=== PATIENT | male | born 1950 ===

== ENCOUNTER 2020-12-19 06:00 | Outpatient (RCR) | payer MEDICARE, SELFPAY | END 2020-12-23 23:59 | disposition home or self-care (01) | LOC: GPT 06:00 | PROVIDERS: PCP Nurse Practitioner Family; Referring Provider Registered Nurse; Visit Provider Registered Nurse | DX: M54.16 Radiculopathy, lumbar region (principal) | CPT/HCPCS: 97110; 97161; 97530 ==

== ENCOUNTER 2020-12-24 06:00 | Outpatient (RCR) | payer MEDICARE, SELFPAY | END 2021-01-22 23:59 | disposition home or self-care (01) | LOC: GPT 06:00 | PROVIDERS: PCP Nurse Practitioner Family; Referring Provider Registered Nurse; Visit Provider Registered Nurse | DX: M54.16 Radiculopathy, lumbar region (principal); R20.0 Anesthesia of skin | CPT/HCPCS: 97032; 97110; 97112; 97140 ==

== ENCOUNTER 2021-01-23 06:00 | Outpatient (RCR) | payer MEDICARE, SELFPAY | END 2021-02-13 23:59 | disposition home or self-care (01) | LOC: GPT 06:00 | PROVIDERS: PCP Nurse Practitioner Family; Referring Provider Registered Nurse; Visit Provider Registered Nurse | DX: M54.16 Radiculopathy, lumbar region (principal); R20.0 Anesthesia of skin | CPT/HCPCS: 97110 ==

== ENCOUNTER 2023-07-16 06:00 | Outpatient (RCR) | payer MEDICARE, SELFPAY | END 2023-07-24 23:59 | disposition home or self-care (01) | LOC: GPT 06:00 | PROVIDERS: Visit Provider Nurse Practitioner | DX: R26.9 Unspecified abnormalities of gait and mobility (principal) | CPT/HCPCS: 97161 ==

== ENCOUNTER → 2024-03-16 14:03 | Outpatient (BNVA) | payer MEDICARE, SELFPAY | PROVIDERS: Referring Provider Nurse Practitioner; Visit Provider Nurse Practitioner Family | DX: L82.1 Other seborrheic keratosis (principal); D22.5 Melanocytic nevi of trunk; L81.4 Other melanin hyperpigmentation; L57.8 Other skin changes due to chronic exposure to nonionizing radiation; L72.0 Epidermal cyst; D48.5 Neoplasm of uncertain behavior of skin; L57.0 Actinic keratosis | CPT/HCPCS: 11102; 17000; 99203 ==

== ENCOUNTER → 2024-04-11 14:25 | Outpatient (BNVA) | payer MEDICARE, SELFPAY | PROVIDERS: Visit Provider Dermatology | DX: D48.5 Neoplasm of uncertain behavior of skin (principal); R20.8 Other disturbances of skin sensation; R23.8 Other skin changes | CPT/HCPCS: 11403; 12032 ==